=== PATIENT | male | born 1990 | race African-American/Black ===

== ENCOUNTER 2017-01-04 08:27 | Emergency (ER) | payer SELFPAY ==
[~2017-01-04] VITALS: Ht 170.2 cm; Wt 102.0 kg
[2017-01-04 08:28] VITALS: BP 136/89; PULSE 63; RESP 16; TEMP 98; O2SAT 96
[2017-01-04] MEDS ORDERED: PROPARACAINE HCL 0.5% OPHT SOLN 15 ML BTL RIGHT EYE ONE (08:45)
[2017-01-04] MEDS ORDERED: ERYTOIN10 RIGHT EYE (09:11)
[2017-01-04] MEDS ORDERED: IBUP800T23 PO (09:11)
--- NOTE | 2017-01-04 09:13 | PD ---
HPI Chief Complaint: Eye Problems/Injury Time Seen by Provider: 09:08 Travel History International Travel<30 days: No Contact w/Intl Traveler<30days: No Traveled to known affect area: No History of Present Illness HPI 26-year-old male presents to emergency Department with complaint of right eye pain and watering since this morning. 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 He said he was rubbing his eye this morning because it was irritated and somewhat itchy. Denies fever, vomiting. Reports blurred vision. Reports photophobia. Has tried using eyedrops for symptom management. Symptoms are mild in severity. No known relieving factors. Has no other medical complaints. No known allergies. No other modifying factors or associated signs and symptoms. PFSH Past Medical History Asthma: Yes Social History Alcohol Use: Yes (on occasion) Tobacco Use: Yes (0.5 ppd) Substance Use: No Allergies-Medications (Allergen,Severity, Reaction): Coded Allergies: No Known Allergies (Unverified , 01/04/17) Reported Meds & Prescriptions Reported Meds & Active Scripts Active Ibuprofen 800 Mg Tab 800 Mg PO Q6HR PRN Erythromycin Opth Oint 5 Mg/Gm Oint 1 Applic RIGHT EYE QID 7 Days Review of Systems Except as stated in HPI: all other systems reviewed are Neg Physical Exam Narrative GENERAL: Well-nourished, well-developed black male patient, in no acute distress ; afebrile, nontoxic-appearing SKIN: Warm and dry. HEAD: Atraumatic. Normocephalic. EYES: Pupils equal and round at 3 mm with brisk reaction. PERRLA. EOMI. visual acuity bilaterally 20/25, left 20/20, right 20/30. Right lid eversion with no foreign body noted. Right eye without scleral erythema and lid edema. No orbital tenderness, erythema or cellulitis. Right eye with photophobia. No consensual photophobia. No scleral icterus. Clear drainage. Shen lamp exam reveals corneal abrasion at the 5-7o'clock position. ENT: Mucosa pink and moist. Airway patent. NECK: Trachea midline. CARDIOVASCULAR: Regular rate. RESPIRATORY: No accessory muscle use. GASTROINTESTINAL: Rounded. NEUROLOGICAL: Awake and alert. Oriented 3. No obvious cranial nerve deficits. Motor grossly within normal limits. Normal speech. PSYCHIATRIC: Appropriate mood and affect; insight and judgment normal. Data Data Last Documented VS Vital Signs Date Time Temp Pulse Resp B/P (MAP) Pulse Ox O2 Delivery O2 Flow Rate FiO2 01/04/17 09:17 01/04/17 08:40 18 01/04/17 08:28 98.0 63 96 Room Air Orders Orders Proparacaine 0.5% Opth Soln (Alcaine 0.5 (01/04/17 08:45) Mandatory Outpatient Referral (01/04/17 09:18) [facility] Medical Decision Making Medical Screen Exam Complete: Yes Emergency Medical Condition: Yes Medical Record Reviewed: Yes Differential Diagnosis Corneal abrasion, foreign body, allergic conjunctivitis, conjunctivitis Narrative Course 26-year-old male physical exam consistent with right corneal abrasion. Mandatory outpatient referral ordered for outpatient follow-up. Erythromycin and ibuprofen prescribed for home. Instructed patient to follow up with ophthalmology in one to 2 days. Instructed patient to follow up with primary care provider. Patient verbalizes understanding and agreement with treatment plan. Patient is medically cleared and stable for discharge. Discussed reasons to return to the emergency department. Patient agrees with treatment plan. The patients vital signs are stable and the patient is stable for outpatient follow-up and treatment. Patient discharged home, stable and in no acute distress. Diagnosis Primary Impression: Right corneal abrasion Qualified Codes: S05.01XA - Injury of conjunctiva and corneal abrasion without foreign body, right eye, initial encounter Referrals: Fouzia Schwab MDelectric milkers installer Primary Care Physician Patient Instructions: Corneal Abrasion (ED), General Instructions Departure Forms: Tests/Procedures, Work Release Enter return to work date: Jan 05, 2017 Additional Instructions: Ibuprofen or Tylenol as directed and as needed to reduce pain Do not patch the eye Do not rub the eye Refrigerated eye drops as needed to reduce pain Cool compresses to the eye as needed to reduce pain Follow-up with ophthalmology Primary care provider Return to the emergency department immediately with worsening of symptoms Med/Other Pt SpecificInfo: Prescription(s) given Scripts Ibuprofen (Ibuprofen) 800 Mg Tab 800 MG PO Q6HR Y for PAIN, #30 TAB 0 Refills Prov: Asiya Hankins [employer] 01/04/17 Erythromycin Opth Oint (Erythromycin Opth Oint) 5 Mg/Gm Oint 1 APPLIC RIGHT EYE QID for Infection for 7 Days, #1 TUBE 0 Refills Prov: Asiya Hankins 01/04/17 Disposition: 01 DISCHARGE HOME Condition: Stable Asiya Hankins Jan 04, 2017 09:13
== END 2017-01-04 09:42 | disposition home or self-care (01) ==
LOC: NEPD 08:27
DX: S05.01XA Injury of conjunctiva and corneal abrasion without foreign body, right eye, initial encounter (principal); F17.210 Nicotine dependence, cigarettes, uncomplicated; X58.XXXA Exposure to other specified factors, initial encounter; Y99.0 Civilian activity done for income or pay
CPT/HCPCS: 99283